=== PATIENT | female | born 1950 | race Caucasian/White ===

== ENCOUNTER 2017-10-05 05:06 | Emergency (ER) | payer OTHER ==
[~2017-10-05] VITALS: Ht 167.6 cm; Wt 139.8 kg
[2017-10-05] MEDS ORDERED: FISH OIL 1,001000 M2 (05:24)
[2017-10-05] MEDS ORDERED: POTASSIUM (05:24)
[2017-10-05] MEDS ORDERED: ZOLOFT (05:26)
[2017-10-05] MEDS ORDERED: HYDROCODONE-AP1 EAC6 (05:28)
[2017-10-05] MEDS ORDERED: NEURONTIN 300300 M1 PO (05:28)
[2017-10-05] MEDS ORDERED: MULTI VITAMIN1 EACH (05:29)
[2017-10-05] MEDS ORDERED: NOVOLIN (05:38)
[2017-10-05 06:01] LABS: MPV 7.9 fl. (7.2-11.1); RBC 4.67 mil/uL (4.20-5.00)
[2017-10-05 06:04] LABS: ABSOLUTE BASOPHILS 0.1 thou/uL (0.0-0.2); ABSOLUTE EOSINOPHILS 0.2 thou/uL (0.0-0.7); ABSOLUTE LYMPHOCYTES 1.6 thou/uL (0.8-5.3); ABSOLUTE MONOCYTES 0.6 thou/uL (0.0-1.2); BASOPHILS 0.8 %; EOSINOPHILS 1.9 %; HEMATOCRIT 41.5 % (37.0-47.0); HEMOGLOBIN 14.1 gm/dL (12.0-15.0); LYMPHOCYTES 17.2 %; MCH 30.1 pg (26.0-34.0); MCHC 33.9 g/dL (28.0-37.0); MCV 88.8 fL (80.0-100.0); NUCLEATED RBCS 0 /100WBC; PLATELET COUNT* 257 thou/uL (150-400); POLYS 74.1 %; RDW-CV 14.8 % (10.5-14.5); WBC 9.4 thou/uL (4.0-11.0)
[2017-10-05 06:09] LABS: ANION GAP 9 mmol/L (7-16); BUN 25 mg/dL (7-18); CALCIUM 9.3 mg/dL (8.5-10.1); CHLORIDE 107 mmol/L (98-107); CO2 31 mmol/L (21-32); CREATININE 0.9 mg/dL (0.6-1.3); GLUCOSE 56 mg/dL (70-99); POTASSIUM 3.4 mmol/L (3.5-5.1); SODIUM 147 mmol/L (136-145)
[2017-10-05 06:21] LABS: ALBUMIN 3.2 g/dL (3.4-5.0); ALKALINE PHOSPHATASE 78 U/L (46-116); LIPASE 60 U/L (73-393); NT-PRO BRAIN NAT PEPTIDE 1987 pg/mL (<300); SGOT 20 U/L (15-37); SGPT 31 U/L (30-65); TOTAL BILIRUBIN 0.7 mg/dL (<0.1-1.0); TOTAL PROTEIN 6.9 g/dL (6.4-8.2); TROPONIN-I LEVEL <0.06 ng/mL (<0.06)
[2017-10-05 07:50] LABS: URINE BILIRUBIN NEGATIVE (Negative); URINE BLOOD 2+ (Negative); URINE CLARITY CLEAR; URINE COLOR YELLOW; URINE GLUCOSE-RANDOM NEGATIVE (Negative); URINE KETONES NEGATIVE (Negative); URINE LEUKOCYTES-REFLEX NEGATIVE (Negative); URINE NITRITE-REFLEX NEGATIVE (Negative); URINE PROTEIN 2+ (Negative); URINE UROBILINOGEN 0.2 E.U./dl (0.2-1.0)
[2017-10-05 08:08] LABS: CASTS None Seen /LPF (None Seen); CRYSTALS None Seen /LPF (None Seen); SQUAMOUS 4-10 Moderate /LPF (0-3); URINE RBC 3-10 Few /HPF (0-2); URINE WBC-REFLEX 0-5 Rare /HPF (0-5)
[2017-10-05 09:25] VITALS: BP 165/74
--- NOTE | 2017-10-05 11:26 | EKG ---
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 Techniques: DONITA : 1950 Requested By: Daisha Montero Order Number: [id number] MD: Shaheen Huerta Measurements Intervals [place] Rate: 67 P: -38 [place]: 168 QRS: 61 QRSD: 103 T: 33 QT: 445 QTc: 470 Interpretive Statements Sinus rhythm Abnormal R-wave progression, late transition Baseline wander in lead(s) V1 No previous ECG available for comparison Electronically Signed On 10-05-2017 11:26:20 INCIDENT RESPONSE ANALYST by Shaheen Huerta [email or web address] <ELECTRONICALLY SIGNED> By: Shaheen Huerta MD, [facility] 10/05/17 1126 0512 1 Shahene Huerta MD, FACC /EPI
--- NOTE | 2017-10-05 16:22 | EKG ---
[place] [address] ELECTROCARDIOGRAM REPORT Name: ELIOT COX Room: [facility]#: [id number] Admission: 10/05/17 Attend Phys: Discharge: 10/05/17 Date of : 46 Report #: [id number] THIS REPORT FOR: //name// [facility] ED Test Date: 2017-10-05 Test Time: 08:35:42 Pat Name: ELIOT COX Department: Room: Gender: F Final Inspector Paper: Jose Manuel BRIZUELA : 1950 Requested By: Seun Kumari Order Number: [id number] MD: Shaheen Huerta Measurements Intervals [place] Rate: 61 P: -7 [place]: 171 QRS: 51 QRSD: 99 T: 31 QT: 471 QTc: 475 Interpretive Statements Sinus rhythm Baseline wander in lead(s) V1 Compared to ECG 10/05/2017 05:12:41 No significant changes Electronically Signed On 10-05-2017 16:21:42 CERTIFIED RESPIRATORY THERAPIST by Shaheen Huerta [email or web address] <ELECTRONICALLY SIGNED> By: Shaheen Huerta MD, [facility] 10/05/17 1621 4 4 Shaheen Huerta MD, FACC /EPI
== END 2017-10-05 09:32 | disposition home or self-care (01) ==
LOC: M.ERS 05:06
PROVIDERS: Emergency Medicine
DX: R07.89 Other chest pain (principal); J45.909 Unspecified asthma, uncomplicated; I10 Essential (primary) hypertension; E11.9 Type 2 diabetes mellitus without complications; Z79.4 Long term (current) use of insulin; Z88.8 Allergy status to other drugs, medicaments and biological substances

== ENCOUNTER → 2017-12-16 | Outpatient (CLI) | payer OTHER ==
[~2017-12-16] MED LIST: COD LIVER OIL1 EAC5 PO; FISH OIL 1,001000 M2; FLAGYL500 MG PO; HYDROCODONE-AP1 EAC6; MULTI VITAMIN1 EACH; NEURONTIN 300300 M1 PO; NOVOLIN; POTASSIUM; VITAMIN D2000 UNIT PO; ZOFRAN ODT4 MG SUBLING; ZOLOFT
== END ==
LOC: M.RAD 12-05 09:27
DX: Z12.31 Encounter for screening mammogram for malignant neoplasm of breast (principal); M81.0 Age-related osteoporosis without current pathological fracture; M85.89 Other specified disorders of bone density and structure, multiple sites; M48.062 Spinal stenosis, lumbar region with neurogenic claudication; M54.5 Low back pain; G89.29 Other chronic pain; Z78.0 Asymptomatic menopausal state

== ENCOUNTER 2018-05-03 15:25 | Emergency (ER) | payer OTHER ==
[~2018-05-03] VITALS: Ht 167.6 cm; Wt 127.0 kg
[~2018-05-03 15:25] MED LIST changes: -COD LIVER OIL1 EAC5 PO; -FLAGYL500 MG PO; -VITAMIN D2000 UNIT PO; -ZOFRAN ODT4 MG SUBLING
[2018-05-03] MEDS ORDERED: COD LIVER OIL1 EAC5 PO (15:55)
[2018-05-03] MEDS ORDERED: VITAMIN D2000 UNIT PO (15:55)
[2018-05-03 16:47] LABS: ABSOLUTE BASOPHILS 0.1 thou/uL (0.0-0.2); ABSOLUTE EOSINOPHILS 0.1 thou/uL (0.0-0.7); ABSOLUTE LYMPHOCYTES 1.6 thou/uL (0.8-5.3); ABSOLUTE MONOCYTES 0.5 thou/uL (0.0-1.2); ABSOLUTE NEUTROPHILS 6.1 thou/uL (1.6-8.1); BASOPHILS 0.8 %; EOSINOPHILS 1.1 %; MCH 30.2 pg (26.0-34.0); MCHC 34.2 g/dL (28.0-37.0); MCV 88.5 fL (80.0-100.0); MONOCYTES 5.5 %; MPV 7.9 fl. (7.2-11.1); NUCLEATED RBCS 0 /100WBC; PLATELET COUNT* 231 thou/uL (150-400); POLYS 73.6 %; RBC 4.97 mil/uL (4.20-5.00); RDW-CV 15.9 % (10.5-14.5); WBC 8.3 thou/uL (4.0-11.0)
[2018-05-03 16:50] LABS: ANION GAP 6 mmol/L (7-16); BUN 14 mg/dL (7-18); CHLORIDE 110 mmol/L (98-107); CO2 32 mmol/L (21-32); CREATININE 0.9 mg/dL (0.6-1.3); GLUCOSE 124 mg/dL (70-99); POTASSIUM 4.5 mmol/L (3.5-5.1); SODIUM 148 mmol/L (136-145)
[2018-05-03 16:51] LABS: URINE BILIRUBIN NEGATIVE (Negative); URINE BLOOD 2+ (Negative); URINE CLARITY CLEAR; URINE COLOR YELLOW; URINE GLUCOSE-RANDOM NEGATIVE (Negative); URINE KETONES NEGATIVE (Negative); URINE LEUKOCYTES-REFLEX NEGATIVE (Negative); URINE NITRITE-REFLEX NEGATIVE (Negative); URINE PROTEIN 3+ (Negative); URINE SPECIFIC GRAVITY 1.025 (1.005-1.030); URINE UROBILINOGEN 0.2 E.U./dl (0.2-1.0)
[2018-05-03 16:57] LABS: ALBUMIN 2.9 g/dL (3.4-5.0); ALKALINE PHOSPHATASE 79 U/L (46-116); LIPASE 48 U/L (73-393); SGOT 32 U/L (15-37); SGPT 29 U/L (30-65); TOTAL BILIRUBIN 0.7 mg/dL (<0.1-1.0); TOTAL PROTEIN 6.5 g/dL (6.4-8.2); TROPONIN-I LEVEL <0.06 ng/mL (<0.06)
[2018-05-03 17:02] LABS: BACTERIA-REFLEX 1-9 Few /HPF (None Seen); CRYSTALS None Seen /LPF (None Seen); HYALINE CASTS 0-3 Few /LPF (None Seen); SQUAMOUS >10 Many /LPF (0-3); URINE WBC-REFLEX 0-5 Rare /HPF (0-5)
[2018-05-03] MEDS ORDERED: FLAGYL500 MG PO (18:05)
[2018-05-03] MEDS ORDERED: ZOFRAN ODT4 MG SUBLING (18:05)
[2018-05-03 18:15] VITALS: BP 193/82
--- NOTE | 2018-05-04 09:52 | EKG ---
[place] [address] ELECTROCARDIOGRAM REPORT Name: KENNYELIOT Room: [facility]#: [id number] Admission: 05/03/18 Attend Phys: Discharge: 05/03/18 Date of : 46 Report #: [id number] THIS REPORT FOR: //name// [facility] ED Test Date: 2018-05-03 Test Time: 16:48:58 Pat Name: ELIOT COX Department: Room: Gender: F Upper Tier: Jose Manuel BRIZUELA : 1950 Requested By: Seun Kumari Order Number: [id number] MD: Shaheen Huerta Measurements Intervals [place] Rate: 78 P: 36 [place]: 209 QRS: 69 QRSD: 95 T: 39 QT: 432 QTc: 493 Interpretive Statements Sinus rhythm Abnormal R-wave progression, late transition Borderline prolonged QT interval Compared to ECG 10/05/2017 08:35:42 No significant changes Electronically Signed On 05-04-2018 9:52:15 CDT by Shaheen Huerta [email or web address] <ELECTRONICALLY SIGNED> By: Shaheen Huerta MD, [facility] 05/04/18 0952 47 Shaheen Huerta MD, [facility] /EPI
== END 2018-05-03 18:17 | disposition home or self-care (01) ==
LOC: M.ERS 15:25
PROVIDERS: Family Medicine
DX: R19.7 Diarrhea, unspecified (principal); R11.0 Nausea; J45.909 Unspecified asthma, uncomplicated; I10 Essential (primary) hypertension; E11.40 Type 2 diabetes mellitus with diabetic neuropathy, unspecified; H35.30 Unspecified macular degeneration; Z91.041 Radiographic dye allergy status

== ENCOUNTER → 2018-10-09 | Outpatient (CLI) | payer OTHER ==
[~2018-10-09] MED LIST changes: +COD LIVER OIL1 EAC5 PO; +FLAGYL500 MG PO; +VITAMIN D2000 UNIT PO; +ZOFRAN ODT4 MG SUBLING
== END ==
LOC: M.WC 07:13
DX: E11.622 Type 2 diabetes mellitus with other skin ulcer (principal); I87.312 Chronic venous hypertension (idiopathic) with ulcer of left lower extremity; L97.821 Non-pressure chronic ulcer of other part of left lower leg limited to breakdown of skin; E11.40 Type 2 diabetes mellitus with diabetic neuropathy, unspecified; I87.2 Venous insufficiency (chronic) (peripheral); J45.909 Unspecified asthma, uncomplicated; Z79.4 Long term (current) use of insulin

== ENCOUNTER → 2018-10-16 | Outpatient (CLI) | payer OTHER | LOC: M.WC 04:35 | DX: E11.622 Type 2 diabetes mellitus with other skin ulcer (principal); I87.312 Chronic venous hypertension (idiopathic) with ulcer of left lower extremity; L97.828 Non-pressure chronic ulcer of other part of left lower leg with other specified severity; E11.40 Type 2 diabetes mellitus with diabetic neuropathy, unspecified; J45.909 Unspecified asthma, uncomplicated ==

== ENCOUNTER 2020-02-09 18:36 | Inpatient (IN) | payer MEDICARE ==
[~2020-02-09] VITALS: Ht 167.6 cm; Wt 121.1 kg
--- NOTE | ~2020-02-09 | EKG ---
[place] [address] ELECTROCARDIOGRAM REPORT Name: ELIOT COX Room: [address] ADM IN .R.#: [id number] Admission: 02/09/20 Attend Phys: Richard Vaca, Discharge: Date of : 46 Date of Service: 02/12/20 1730 Report #: [id number] THIS REPORT FOR: //name// [facility] ED Test Date: 2020-02-12 Test Time: 17:30:51 Pat Name: ELIOT COX Department: Room: [address] Gender: F Heat Treat Supervisor: [id number] : 1950 Requested By: Pauline Frederick Order Number: [id number] MD: Measurements Intervals [place] Rate: 47 P: -7 [place]: 211 QRS: 98 QRSD: 108 T: 84 QT: 499 QTc: 442 Interpretive Statements Sinus bradycardia Right axis deviation Abnormal R-wave progression, late transition Nonspecific T abnrm, anterolateral leads Compared to ECG 02/12/2020 16:44:12 Right-axis deviation now present Intraventricular conduction delay no longer present Myocardial infarct finding no longer present [email or web address] By: 29 29 Epiphany Epiphany, /EPI
--- NOTE | ~2020-02-09 | EKG ---
[place] [address] ELECTROCARDIOGRAM REPORT Name: ELIOT COX Room: [address] ADM IN .R.#: [id number] Admission: 02/09/20 Attend Phys: Richard Vaca, Discharge: Date of : 46 Date of Service: 02/12/20 1645 Report #: [id number] THIS REPORT FOR: //name// ED Test Date: 2020-02-12 Test Time: 16:45:29 Pat Name: ELIOT COX Department: Room: [address] Gender: F Last Scourer: [id number] : 1950 Requested By: Pauline Frederick Order Number: [id number] MD: Measurements Intervals [place] Rate: 66 P: 248 AR: 247 QRS: 97 QRSD: 195 T: 45 QT: 477 QTc: 500 Interpretive Statements Incomplete analysis due to missing data in precordial lead(s) Sinus or ectopic atrial rhythm Ventricular premature complex Prolonged AR interval Consider left atrial enlargement Nonspecific intraventricular conduction delay Missing lead(s): V4 Compared to ECG 02/12/2020 16:44:12 Ectopic atrial rhythm now present Ventricular premature complex(es) now present First degree AV block now present Sinus bradycardia no longer present Myocardial infarct finding no longer present [email or web address] By: 1645 44 Epiphany MD Santiago /STEPHANIE
[~2020-02-09 18:36] MED LIST changes: -NOVOLIN; +NOVOLIN SUBQ
[2020-02-09 18:39] VITALS: BP 134/44
[2020-02-09 19:06] LABS: HEMATOCRIT 39.6 % (37.0-47.0); HEMOGLOBIN 13.6 gm/dL (12.0-15.0); MCH 32.3 pg (26.0-34.0); MCHC 34.3 g/dL (28.0-37.0); MPV 8.9 fl. (7.2-11.1); NUCLEATED RBCS 0 /100WBC; PLATELET COUNT* 157 thou/uL (150-400); RBC 4.22 mil/uL (4.20-5.00); WBC 7.7 thou/uL (4.0-11.0)
[2020-02-09 19:12] LABS: CALCIUM 9.2 mg/dL (8.5-10.1); CREATININE 1.6 mg/dL (0.6-1.3); POTASSIUM 4.7 mmol/L (3.5-5.1)
[2020-02-09 19:15] LABS: APTT 24.3 Seconds (25.0-31.3); INR 1.2; PROTIME 11.9 Seconds (9.20-11.50)
[2020-02-09 19:23] LABS: ALBUMIN 3.3 g/dL (3.4-5.0); TOTAL BILIRUBIN 3.9 mg/dL (<0.1-1.0); TOTAL PROTEIN 6.9 g/dL (6.4-8.2)
[2020-02-09 19:32] LABS: ABSOLUTE LYMPHOCYTES 0.5 thou/uL (0.8-5.3); ABSOLUTE MONOCYTES 0.2 thou/uL (0.0-1.2); ABSOLUTE NEUTROPHILS 6.9 thou/uL (1.6-8.1); PLATELET ESTIMATE ADEQUATE
[2020-02-09 19:33] LABS: ANISOCYTOSIS 1+
[2020-02-09 19:52] LABS: BACTERIA-REFLEX >30 Many /HPF (None Seen); SQUAMOUS 4-10 Moderate /LPF (0-3); URINE BILIRUBIN 2+ (Negative); URINE BLOOD 1+ (Negative); URINE CLARITY CLOUDY; URINE COLOR DARK YELLOW; URINE GLUCOSE-RANDOM TRACE (Negative); URINE KETONES TRACE (Negative); URINE LEUKOCYTES-REFLEX NEGATIVE (Negative); URINE NITRITE-REFLEX NEGATIVE (Negative); URINE PROTEIN 3+ (Negative); URINE RBC 0-2 Rare /HPF (0-2); URINE SPECIFIC GRAVITY >= 1.030 (1.005-1.030); URINE WBC-REFLEX 0-5 Rare /HPF (0-5)
[2020-02-09 19:53] LABS: AMORPHOUS URATES Many /LPF (None Seen); CASTS None Seen /LPF (None Seen)
[2020-02-09 19:55] LABS: ICTOTEST (BILI CONFIRMATORY) Positive (Negative)
[2020-02-09 23:32] VITALS: BP 125/47
[2020-02-09] MEDS ORDERED: HYDRALAZINE 2525 M1 PO (23:34)
[2020-02-09] MEDS ORDERED: LISINOPRIL2.5 MG PO (23:35)
[2020-02-09] MEDS ORDERED: NEURONTIN 300M300 M2 PO ×2 (23:36)
[2020-02-09 23:38] VITALS: BP 140/54
[2020-02-10 04:00] VITALS: BP 118/42
[2020-02-10 07:41] VITALS: BP 121/53
[2020-02-10 07:50] LABS: CALCIUM 8.3 mg/dL (8.5-10.1); CREATININE 1.7 mg/dL (0.6-1.3); MAGNESIUM 1.8 mg/dL (1.8-2.4); TOTAL BILIRUBIN 2.8 mg/dL (<0.1-1.0); TOTAL PROTEIN 6.4 g/dL (6.4-8.2)
[2020-02-10 11:41] VITALS: BP 132/55
--- NOTE | 2020-02-10 15:35 | EKG ---
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: : 1950 Requested By: Pauline Frederick Order Number: [id number] MD: Tim Sahu Measurements Intervals [place] Rate: 70 P: AR: QRS: 139 QRSD: 165 T: 37 QT: 511 QTc: 552 Interpretive Statements NSR Nonspecific intraventricular conduction delay Compared to ECG 05/03/2018 16:48:58 Intraventricular conduction delay now present Electronically Signed On 02-10-2020 15:33:33 CDT by Tim Sahu [email or web address] <ELECTRONICALLY SIGNED> By: Becky Sahu MD, [facility] 02/10/20 1533 1841 1841 Becky Sahu MD, [facility] /EPI
[2020-02-10 16:13] VITALS: BP 142/60
[2020-02-10 20:54] VITALS: BP 124/55
[2020-02-11] VITALS: BP 160/49
[2020-02-11 03:53] VITALS: BP 125/53
[2020-02-11 04:41] LABS: HEMATOCRIT 36.8 % (37.0-47.0); HEMOGLOBIN 12.5 gm/dL (12.0-15.0); MCH 32.2 pg (26.0-34.0); MCV 94.8 fL (80.0-100.0); RBC 3.89 mil/uL (4.20-5.00); RDW-CV 15.7 % (10.5-14.5); WBC 7.5 thou/uL (4.0-11.0)
[2020-02-11 05:01] LABS: ALBUMIN 2.9 g/dL (3.4-5.0); ALKALINE PHOSPHATASE 126 U/L (46-116); ANION GAP 7 mmol/L (7-16); BUN 44 mg/dL (7-18); CALCIUM 8.4 mg/dL (8.5-10.1); CHLORIDE 103 mmol/L (98-107); CHOLESTEROL 134 mg/dL (<200); CO2 30 mmol/L (21-32); GLUCOSE 136 mg/dL (70-99); HDL CHOLESTEROL 60 mg/dL (>40); LDL CHOLESTEROL 64 mg/dL (<100); NT-PRO BRAIN NAT PEPTIDE 12254 pg/mL (<300); SGOT 19 U/L (15-37); SGPT 22 U/L (30-65); SODIUM 140 mmol/L (136-145); TC:HDL 2.2 Ratio (Not establshd); TOTAL BILIRUBIN 2.5 mg/dL (<0.1-1.0); TOTAL PROTEIN 6.6 g/dL (6.4-8.2); TRIGLYCERIDE 51 mg/dL (<150); VLDL 10 mg/dL (<40)
[2020-02-11 05:04] LABS: CREATININE 2.9 mg/dL (0.6-1.3)
[2020-02-11 05:55] LABS: SERUM ASSESSMENT CLEAR
[2020-02-11 07:35] VITALS: BP 128/60
[2020-02-11 12:26] VITALS: BP 123/50
[2020-02-11 17:00] VITALS: BP 178/91
--- NOTE | 2020-02-11 17:03 | EKG ---
[place] [address] ELECTROCARDIOGRAM REPORT Name: ELIOT COX Room: [address] ADM IN .R.#: [id number] Admission: 02/09/20 Attend Phys: Richard Vaca, Discharge: Date of : 46 Date of Service: 02/10/20 1529 Report #: [id number] THIS REPORT FOR: //name// [facility] Test Date: 2020-02-10 Test Time: 15:29:01 Pat Name: ELIOT COX Department: Room: [facility] Gender: F Derrick Boat Operator: MARÍA : 1950 Requested By: Becky Sahu Order Number: [id number] MD: Fran Saucedo Measurements Intervals [place] Rate: 57 P: -33 [place]: 203 QRS: 152 QRSD: 166 T: 15 QT: 517 QTc: 504 Interpretive Statements Sinus rhythm Nonspecific intraventricular conduction delay Compared to ECG 02/09/2020 18:41:34 No significant changes Electronically Signed On 02-11-2020 17:01:54 CDT by Fran Saucedo [email or web address] <ELECTRONICALLY SIGNED> By: Fran Saucedo MD, [facility] 02/11/20 1701 1529 1529 Fran Saucedo MD, [facility] /EPI
--- NOTE | 2020-02-11 18:59 | 2DMMODE ---
[place] [address] 2 D/M-MODE ECHOCARDIOGRAM Name: ELIOT COX Room: [address] IN .R.#: [id number] Admission: 02/09/20 Attend Phys: Richard Vaca, Discharge: Date of : 46 Date of Service: 02/11/20 1857 Report #: [id number] THIS REPORT FOR: cc: Sharlene Forde Linda J. DO Liston, Michael J. MD [facility] ~ ADDENDUM APPROVED REPORT Study performed: 02/11/2020 10:26:18 EXAM: Comprehensive 2D, Doppler, and color-flow Echocardiogram Patient Location: In-Patient Room #: 214 Status: routine BSA: 2.26 HR: 51 bpm BP: 128/60 mmHg Rhythm: NSR Other Information Study Quality: Good Indications Dyspnea 2D Dimensions IVSd: 15.32 (7-11mm) LVOT Diam: 20.10 (18-24mm) LVDd: 44.47 mm PWd: 13.36 (7-11mm) Ascending Ao: 35.32 (22-36mm) LVDs: 37.70 (25-40mm) Aortic Root: 36.46 mm Volumes Left Atrial Volume (Systole) LA ESV Index: 43.50 mL/m2 Aortic Valve AoV Peak Eduardo.: 1.71 m/s AO Peak Gr.: 11.71 mmHg LVOT Max P.86 mmHg AO Mean Gr.: 6.04 mmHg LVOT Mean P.19 mmHg LVOT Max V: 1.10 m/s AO V2 VTI: 31.18 cm LVOT Mean V: 0.67 m/s WOLF (VTI): 2.24 cm2 LVOT V1 VTI: 22.01 [place] [address] 2 D/M-MODE ECHOCARDIOGRAM Name: ELIOT COX Room: [address] IN .R.#: [id number] Admission: 02/09/20 Attend Phys: Richard Vaca, Discharge: Date of : 46 Date of Service: 02/11/20 1857 Report #: [id number] Mitral Valve E/A Ratio: 1.99 MV Decel. Time: 225.84 ms MV E Max Eduardo.: 1.21 m/s MV PHT: 65.49 ms MVA (PHT): 3.36 cm2 TDI E/Lateral E': 30.25 E/Medial E': 17.29 Medial E' Eduardo.: 0.07 m/s Lateral E' Eduardo.: 0.04 m/s Pulmonary Valve PV Peak Eduardo.: 0.80 m/s PV Peak Gr.: 2.58 mmHg Tricuspid Valve RAP Estimate: 5.00 mmHg TR Peak Gr.: 23.43 mmHg RVSP: 28.00 mmHg PA Pressure: 28.00 mmHg Left Ventricle The left ventricle is normal size. There is global left ventricular hypokinesis. Moderate concentric left ventricular hypertrophy. Left ventricular systolic function is moderate to severely decreased. LVEF is 30-35%. Transmitral Doppler flow pattern suggests restrictive physiology. Right Ventricle Right ventricle is moderately dilated. The right ventricular systolic function is normal. Atria Left atrium is moderately dilated. Right atrium is moderately dilated. Aortic Valve The aortic valve is normal in structure. No aortic regurgitation is present. There is no aortic valvular stenosis. Mitral Valve The mitral valve is normal in structure. Trace mitral regurgitation. No evidence of mitral valve stenosis. Tricuspid Valve The tricuspid valve is normal in structure. Mild tricuspid regurgitation. The RVSP is 40-[place] [address] 2 D/M-MODE ECHOCARDIOGRAM Name: ELIOT COX Room: [address] IN [facility]#: [id number] Admission: 02/09/20 Attend Phys: Richard Vaca, Discharge: Date of : 46 Date of Service: 02/11/20 1857 Report #: [id number] Pulmonic Valve The pulmonary valve is normal in structure. Trace pulmonic regurgitation. Great Vessels The aortic root is normal in size. IVC is dilated and collapses <50% with inspiration. Pericardium Mild circumferential pericardial effusion. No echo indications of pericardial tamponade. Left pleural effusion. <Conclusion> The left ventricle is normal size. Moderate concentric left ventricular hypertrophy. Left ventricular systolic function is moderate to severely decreased. LVEF is 30-35%. Transmitral Doppler flow pattern suggests restrictive physiology. There is global left ventricular hypokinesis. Left atrium is moderately dilated. Right atrium is moderately dilated. Trace mitral regurgitation. Mild tricuspid regurgitation. The RVSP is 40-45 mmHg. IVC is dilated and collapses <50% with inspiration. Mild circumferential pericardial effusion. No echo indications of pericardial tamponade. Left pleural effusion. <ELECTRONICALLY SIGNED> By: Fran Saucedo MD, FACC 02/11/201856 56 56 Fran Saucedo MD, FACC /INF
[2020-02-11 21:15] VITALS: BP 119/74
[2020-02-12] VITALS: BP 129/56
[2020-02-12 04:00] VITALS: BP 131/59
[2020-02-12 05:36] LABS: CALCIUM 8.6 mg/dL (8.5-10.1); CREATININE 3.8 mg/dL (0.6-1.3); POTASSIUM 4.5 mmol/L (3.5-5.1)
[2020-02-12 08:15] VITALS: BP 140/55
[2020-02-12 13:03] VITALS: BP 104/41
[2020-02-12 20:00] VITALS: BP 140/56
[2020-02-12] MEDS ORDERED: PROAIR HFA8.5 GM INH (22:50)
[2020-02-13] VITALS (9 sets, daily range): BP systolic 116–156; BP diastolic 50–77
[2020-02-13 05:35] LABS: ALBUMIN 2.6 g/dL (3.4-5.0); CALCIUM 8.4 mg/dL (8.5-10.1); CREATININE 4.2 mg/dL (0.6-1.3); POTASSIUM 4.5 mmol/L (3.5-5.1); TOTAL BILIRUBIN 1.9 mg/dL (<0.1-1.0); TOTAL PROTEIN 6.4 g/dL (6.4-8.2)
[2020-02-13 12:08] LABS: ANA INTERPRETATION Negative (Negative)
--- NOTE | 2020-02-13 16:24 | EKG ---
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: [id number] : 1950 Requested By: Richard Vaca Order Number: [id number] Kaiser MD: Shaheen Huerta Measurements Intervals [place] Rate: 51 P: SC: QRS: 106 QRSD: 115 T: -39 QT: 618 QTc: 570 Interpretive Statements Incomplete analysis due to missing data in precordial lead(s) sinus bradycardia Nonspecific intraventricular conduction delay Low voltage, extremity leads Lateral infarct, old late transition artifact noted Baseline wander in lead(s) V2 Missing lead(s): V4 Compared to ECG 02/10/2020 15:29:01 anterior q waves no longer seen Electronically Signed On 02-13-2020 16:22:54 CDT by Shaheen Huerta [email or web address] <ELECTRONICALLY SIGNED> By: Shaheen Huerta MD, [facility] 02/13/20 1622 43 1644 Sahheen Huerta MD, [facility] /EPI
[2020-02-13 18:30] LABS: CALCIUM 8.6 mg/dL (8.5-10.1); CREATININE 4.2 mg/dL (0.6-1.3); MAGNESIUM 2.2 mg/dL (1.8-2.4); POTASSIUM 4.8 mmol/L (3.5-5.1)
[2020-02-14] VITALS (24 sets, daily range): BP systolic 99–137; BP diastolic 43–74
[2020-02-14 02:56] LABS: ALBUMIN 2.6 g/dL (3.4-5.0); CALCIUM 8.2 mg/dL (8.5-10.1); CREATININE 3.9 mg/dL (0.6-1.3); POTASSIUM 4.9 mmol/L (3.5-5.1); TOTAL BILIRUBIN 2.1 mg/dL (<0.1-1.0); TOTAL PROTEIN 6.4 g/dL (6.4-8.2)
[2020-02-14 08:55] LABS: ABSOLUTE EOSINOPHILS 0.1 thou/uL (0.0-0.7); ABSOLUTE LYMPHOCYTES 0.7 thou/uL (0.8-5.3); ABSOLUTE MONOCYTES 0.6 thou/uL (0.0-1.2); ABSOLUTE NEUTROPHILS 3.4 thou/uL (1.6-8.1); BASOPHILS 0.8 %; EOSINOPHILS 1.3 %; HEMATOCRIT 34.6 % (37.0-47.0); HEMOGLOBIN 11.9 gm/dL (12.0-15.0); LYMPHOCYTES 14.4 %; MCH 32.4 pg (26.0-34.0); MCHC 34.3 g/dL (28.0-37.0); MCV 94.3 fL (80.0-100.0); MONOCYTES 11.9 %; NUCLEATED RBCS 0 /100WBC; PLATELET COUNT* 159 thou/uL (150-400); POLYS 71.6 %; RBC 3.67 mil/uL (4.20-5.00); RDW-CV 15.6 % (10.5-14.5); WBC 4.8 thou/uL (4.0-11.0)
--- NOTE | 2020-02-14 14:10 | CON ---
[address] [address] CONSULTATION Name: ELIOT COX Room: [address] IN .R.#: [id number] Admission: 02/09/20 Attend Phys: Richard Vaca MD Discharge: Date of : 46 Report #: [id number] THIS REPORT FOR: //name// cc: Sharlene Forde Linda J. DO ~ THIS REPORT FOR: //name// CC: Richard Forde DO DATE OF SERVICE: 02/11/2020 REQUESTING PHYSICIAN: Richard Vaca MD HISTORY OF PRESENT ILLNESS: This is a 69-year-old female with multiple medical problems including right and left heart failure, chronic kidney disease, who presents to hospital with nausea, abdominal pain and shortness of air. The patient found to have mild elevation of the troponin and worsening of renal function. She reports that 6 weeks ago, she had a CT scan in another facility and she was told that she has liver disease. Prior to that, she has never been told that she has liver disease. PAST MEDICAL HISTORY: Significant for history of heart failure, asthma, hypertension, diabetes mellitus, macular degeneration, peptic ulcer disease, diabetic neuropathy, morbid obesity, chronic kidney disease, depression. ALLERGIES: SIGNIFICANT TO IV CONTRAST. MEDICATIONS: Please refer to MAR. SOCIAL HISTORY: The patient denies tobacco or alcohol use. She lives at home. FAMILY HISTORY: Negative for GI malignancy. PHYSICAL EXAMINATION: VITAL SIGNS: Reveals blood pressure of 123/50, respirations 20, pulse is 97, temperature 98.4. LUNGS: Clear. CARDIOVASCULAR: Regular. ABDOMEN: Soft, large, mildly tender to palpation. NEUROLOGIC: The patient is alert and oriented x 3. LABORATORY DATA: Reveal sodium of 140, potassium 4.0, BUN is 44, creatinine 2.9, glucose 136, AST is 19, ALT 22, alkaline phosphatase 126, total bilirubin is 2.5, it was 0.7 in 2018. Albumin is 2.9. INR is 1.2. WBC 7[place]5 [place] [address] CONSULTATION Name: ELIOT COX Room: [address] IN [facility]#: [id number] Admission: 02/09/20 Attend Phys: Richard Vaca MD Discharge: Date of : 46 Report #: [id number] hemoglobin of 12.5 and platelet of 138. IMAGING: CT of abdomen and pelvis was obtained on admission. This did not show any evidence of splenomegaly or cirrhosis. There is marked cardiomegaly with small bilateral pleural effusion, mild ascites and anasarca. ASSESSMENT AND PLAN: The patient with history of heart failure, elevated creatinine as the patient has acute over chronic renal insufficiency. So far, I do not see any evidence of liver disease except elevated bilirubin. This may not be due to the liver. I will order a GGT and continue checking bilirubin. The patient is agreeable with plan. We will make further recommendation based on finding. <ELECTRONICALLY SIGNED> By: Mima Tucker MD 02/14/20 1410 1435 1459Mima Tucker MD /nt
[2020-02-15] VITALS (20 sets, daily range): BP systolic 91–159; BP diastolic 47–74
[2020-02-15 02:08] LABS: IgA 267 mg/dL (64-422); IgG 833 mg/dL (586-1602); IgM 124 mg/dL (26-217)
[2020-02-15 03:26] LABS: ABSOLUTE BASOPHILS 0.1 thou/uL (0.0-0.2); ABSOLUTE LYMPHOCYTES 0.6 thou/uL (0.8-5.3); ABSOLUTE MONOCYTES 0.6 thou/uL (0.0-1.2); ABSOLUTE NEUTROPHILS 3.5 thou/uL (1.6-8.1); BASOPHILS 1.3 %; HEMATOCRIT 34.4 % (37.0-47.0); LYMPHOCYTES 12.8 %; MCV 94.2 fL (80.0-100.0); MONOCYTES 12.7 %; MPV 8.4 fl. (7.2-11.1); NUCLEATED RBCS 0 /100WBC; PLATELET COUNT* 151 thou/uL (150-400); POLYS 72.2 %; RBC 3.66 mil/uL (4.20-5.00); RDW-CV 15.7 % (10.5-14.5); WBC 4.9 thou/uL (4.0-11.0)
[2020-02-15 03:47] LABS: ALBUMIN 2.5 g/dL (3.4-5.0); CALCIUM 8.5 mg/dL (8.5-10.1); CREATININE 3.8 mg/dL (0.6-1.3); POTASSIUM 5.3 mmol/L (3.5-5.1); TOTAL BILIRUBIN 2.3 mg/dL (<0.1-1.0); TOTAL PROTEIN 6.3 g/dL (6.4-8.2)
--- NOTE | 2020-02-15 12:51 | EKG ---
[place] [address] ELECTROCARDIOGRAM REPORT Name: ELIOT COX Ayo Room: [address] ADM IN M.R.#: [id number] Admission: 02/09/20 Attend Phys: Richard Vaca, Discharge: Date of : 46 Date of Service: 02/12/20 1729 Report #: [id number] THIS REPORT FOR: //name// [facility] ED Test Date: 2020-02-12 Test Time: 17:29:25 Pat Name: ELIOT COX Department: Room: [address] Gender: F Biomedical Equipment Tech: [id number] : 1950 Requested By: Richard Vaca Order Number: [id number] Reading MD: Shaheen Huerta Measurements Intervals [place] Rate: 47 P: 235 [place]: 220 QRS: 101 QRSD: 110 T: 87 QT: 496 QTc: 439 Interpretive Statements Sinus or ectopic atrial bradycardia Right axis deviation Abnormal R-wave progression, late transition Nonspecific T abnrm, anterolateral leads Compared to ECG 02/12/2020 16:44:12 no change Electronically Signed On 02-15-2020 12:49:07 CDT by Shaheen Huerta [email or web address] <ELECTRONICALLY SIGNED> By: Shaheen Huerta MD, FAC 02/15/20 1249 1729 1729 Shaheen Huerta MD, FAC /EPI
--- NOTE | 2020-02-15 12:51 | EKG ---
[place] [address] ELECTROCARDIOGRAM REPORT Name: KENNYELIOT R Room: [address] ADM IN M.R.#: [id number] Admission: 02/09/20 Attend Phys: Richard Vaca, Discharge: Date of : 46 Date of Service: 02/12/201729 Report #: [id number] THIS REPORT FOR: //name// [facility] ED Test Date: 2020-02-12 Test Time: 17:30:51 Pat Name: ELIOT COX Department: Room: [address] Gender: F Train Driver: [id number] : 1950 Requested By: Richard Vaca Order Number: [id number] Reading MD: Shaheen Huerta Measurements Intervals [place] Rate: 47 P: -7 [place]: 211 QRS: 98 QRSD: 108 T: 84 QT: 499 QTc: 442 Interpretive Statements Sinus bradycardia Right axis deviation Abnormal R-wave progression, late transition Nonspecific T abnrm, anterolateral leads Compared to ECG 02/12/2020 16:44:12 no change Electronically Signed On 02-15-2020 12:50:01 CDT by Shaheen Huerta [email or web address] <ELECTRONICALLY SIGNED> By: Shaheen Huerat MD, [facility] 02/15/20 1250 1730 1730 Shaheen Huerta MD, FAC /EPI
--- NOTE | 2020-02-15 12:52 | EKG ---
[place] [address] ELECTROCARDIOGRAM REPORT Name: KENNYELIOT Room: [address] ADM IN M.R.#: [id number] Admission: 02/09/20 Attend Phys: Richard Vaca, Discharge: Date of : 46 Date of Service: 02/13/20 1751 Report #: [id number] THIS REPORT FOR: //name// [facility] ED Test Date: 2020-02-13 Test Time: 17:51:21 Pat Name: ELIOT COX Department: Room: [address] Gender: F Musculoskeletal Physiotherapist: THERESE : 1950 Requested By: Richard Vaca Order Number: [id number] Kaiser MD: Shaheen Huerta Measurements Intervals [place] Rate: 50 P: 31 [place]: 222 QRS: 115 QRSD: 114 T: 100 QT: 487 QTc: 445 Interpretive Statements Sinus bradycardia Prolonged [place] interval Anteroseptal infarct, age indeterminate Baseline wander in lead(s) II,III,aVF Compared to ECG 02/12/2020 16:44:12 no change Electronically Signed On 02-15-2020 12:51:01 CDT by Shaheen Huerta [email or web address] <ELECTRONICALLY SIGNED> By: Shaheen Huerta MD, FACC 02/15/20 1251 175 175 Shaheen Huerta MD, FAC /EPI
[2020-02-16] VITALS (10 sets, daily range): BP systolic 126–159; BP diastolic 46–79
[2020-02-16 04:58] LABS: HEMOGLOBIN 12.4 gm/dL (12.0-15.0); MCH 32.5 pg (26.0-34.0); MCHC 34.4 g/dL (28.0-37.0); MCV 94.5 fL (80.0-100.0); MPV 8.9 fl. (7.2-11.1); RBC 3.81 mil/uL (4.20-5.00); RDW-CV 15.2 % (10.5-14.5); WBC 5.1 thou/uL (4.0-11.0)
[2020-02-16 05:20] LABS: ALBUMIN 2.8 g/dL (3.4-5.0); CALCIUM 8.7 mg/dL (8.5-10.1); CREATININE 3.2 mg/dL (0.6-1.3); MAGNESIUM 2.4 mg/dL (1.8-2.4); POTASSIUM 5.1 mmol/L (3.5-5.1); TOTAL BILIRUBIN 3.2 mg/dL (<0.1-1.0); TOTAL PROTEIN 6.8 g/dL (6.4-8.2)
[2020-02-17] VITALS: BP 127/71
[2020-02-17 04:00] VITALS: BP 127/64
[2020-02-17 05:07] LABS: ALBUMIN 2.7 g/dL (3.4-5.0); CALCIUM 8.8 mg/dL (8.5-10.1); CREATININE 3.1 mg/dL (0.6-1.3); MAGNESIUM 2.5 mg/dL (1.8-2.4); PHOSPHORUS* 4.5 mg/dL (2.5-4.9); POTASSIUM 5.1 mmol/L (3.5-5.1)
[2020-02-17 07:52] VITALS: BP 114/77
[2020-02-17 11:25] VITALS: BP 123/62
[2020-02-17 16:35] VITALS: BP 122/67
[2020-02-17 19:39] VITALS: BP 137/73
[2020-02-18] VITALS: BP 120/69
[2020-02-18 04:00] VITALS: BP 122/78
[2020-02-18 07:34] VITALS: BP 106/54
[2020-02-18 07:39] LABS: ALBUMIN 2.6 g/dL (3.4-5.0); CREATININE 3.1 mg/dL (0.6-1.3); MAGNESIUM 2.6 mg/dL (1.8-2.4); PHOSPHORUS* 4.9 mg/dL (2.5-4.9); POTASSIUM 4.5 mmol/L (3.5-5.1)
[2020-02-18 12:03] VITALS: BP 116/69
--- NOTE | 2020-02-18 12:29 | CON ---
[address] [address] CONSULTATION Name: ELIOT COX Room: [address] IN M.R.#: [id number] Admission: 02/09/20 Attend Phys: Richard Vaca MD Discharge: Date of : 46 Report #: [id number] THIS REPORT FOR: //name// cc: Sharlene Forde Linda J. DO ~ THIS REPORT FOR: //name// CC: Richard Forde CARDIOLOGY CONSULTATION HISTORY OF PRESENT ILLNESS: I was asked by Dr. Vaca to see this 69-year-old white female in cardiology consultation for evaluation and treatment of chest pain and pericardial effusion. Additionally, this lady has ascites and pleural effusions. This lady's chest pain was in the left upper chest. She has a long cardiac history actually. Apparently, she has had heart failure for at least 5 years. She has been getting diuretics. 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 She does not really know much about what is wrong with her heart. She had chest pain in the left upper chest that she describes as a 12 on a scale of 10. She describes the pain as a pressure, it lasted 3 hours. It came and went down in the ER for about 2 hours. She said it would be relieved with nitroglycerin and morphine. It was definitely worse with activity. It was not clearly better with rest. It was the first time she has ever had this pain. She does have coronary calcifications on a coronary CT. She does have diabetes mellitus and essential hypertension and a history of asthma. Additionally, on her CT of her chest, she had marked cardiomegaly. From most recent records, there was some nausea with this and she had some vomiting. She also had diarrhea or loose stools yesterday. There was no relationship to food. It did seem to be better with nitroglycerin. The pain did radiate to her neck and back. She did not have troponin elevations with this. Her EKG showed normal sinus rhythm with left bundle branch block. She had never been told she had a left bundle until she came here. She apparently wears oxygen 2 liters at bedtime in order to sleep comfortably. She thought it was for her asthma. She does not know whether or not she has dyspnea on exertion and she says she does not exert. She does not have orthopnea or PND. She does have edema. Currently, she has only 1+ edema. She has not had syncope or near syncope. Coronary risk factors include diabetes and high blood pressure. She does not know about her cholesterol. She has never smoked, but she says she has always been around secondhand smoke. There is family history of coronary artery disease. She says she does have some kidney disease. She has not had any strokes or TIAs or blocked arteries or bruits as far as she knows. She does not have claudication, but she says she does not walk much. She does not have any open nonhealing wounds. She also has cirrhosis. She says that was recently diagnosed. She says that she has had trouble with left and right heart fluid accumulation and fluid overload. She has had back surgery in the past. [address] [address] CONSULTATION Name: ELIOT COX Room: M.205-P ADM IN M.R.#: [id number] Admission: 02/09/20 Attend Phys: Richard Vaca MD Discharge: Date of : 46 Report #: [id number] FAMILY HISTORY: Her mother had hypertension, diabetes. Father had lung cancer, of those. There has been no history of sudden . SOCIAL HISTORY: She is x 2. She is retired, does not smoke, does not drink or use illegal drugs. 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 ALLERGIES: SHE IS ALLERGIC TO IV CONTRAST, WHICH CAUSES HIVES. REVIEW OF SYSTEMS: Positive for 10-pound weight loss in the last month, diabetes, vomiting and ulcers as well as SEASONAL ALLERGIES, X-RAY DYE ALLERGY, wearing glasses and loss of vision. Otherwise, her review of systems is negative for some 40 different complaints in 14 different system categories including central nervous system, general, respiratory, cardiovascular, endocrine, gastrointestinal, genitourinary, hematologic, lymphatic, allergic, immunologic, psychiatric, musculoskeletal, skin, eyes, ears, nose, mouth, and throat. Please see review of system form for details and negatives in review of systems. PHYSICAL EXAMINATION: GENERAL: She presents as an elderly obese white female, in no acute distress. She is lying flat in bed and breathing comfortably. VITAL SIGNS: Her pulse was 57 and regular, blood pressure is 118/42, respirations 20 and regular, temperature is 98 degrees. HEENT: Her head was atraumatic. Eyes clear. Mucous membranes are moist. NECK: Supple. There is no jugular venous distention or hepatojugular reflux. Thyroid is not enlarged. There is no adenopathy. SKIN: Warm and dry. LUNGS: Clear to auscultation and percussion. HEART: Revealed normal first and second heart sounds. There is soft S4. There is no S3. There are no murmurs, rubs, thrills, heaves or gallops. PMI is nondisplaced. ABDOMEN: Soft, flat and nontender. No palpable masses, no organomegaly. EXTREMITIES: Reveal no cyanosis, clubbing, but there is 1+ ankle edema. IMPRESSION: 1. Chest pain that could well be cardiac. 2. Pericardial effusion by CT of the chest. 3. Ascites by CT of the chest. 4. Asthma. 5. Insulin-dependent diabetes mellitus. 6. Cardiomegaly by CT of the chest. 7. Pleural effusions by CT of the chest. 8. Essential hypertension. 9. Coronary calcifications on CT of the chest. 10. Congestive heart failure, presumably acute on chronic [place] [address] CONSULTATION Name: ELIOT COX Room: [address] IN [facility]#: [id number] Admission: 02/09/20 Attend Phys: Richard Vaca MD Discharge: Date of : 46 Report #: [id number] failure with both systolic and diastolic heart failure. RECOMMENDATIONS: I would diurese her for now, get an echo and when she is diuresed down, I would cath her. Please see my orders. Thank you very much for asking me to see the patient. If there are any questions, please feel free to contact me. Note that this lady did refuse a Lexiscan Cardiolite stress test or any kind of stress test. <ELECTRONICALLY SIGNED> By: Becky Sahu MD, MEY 02/18/20 [facility]9 1229 [id number]. Tim Sahu MD, MEY /nt
[2020-02-18 15:52] VITALS: BP 124/70
[2020-02-18 19:40] VITALS: BP 132/62
[2020-02-19 00:26] VITALS: BP 124/58
[2020-02-19 04:32] VITALS: BP 139/91
[2020-02-19 04:42] LABS: HEMATOCRIT 35.8 % (37.0-47.0); HEMOGLOBIN 12.2 gm/dL (12.0-15.0); MCH 32.2 pg (26.0-34.0); MCV 94.8 fL (80.0-100.0); MPV 8.1 fl. (7.2-11.1); RBC 3.78 mil/uL (4.20-5.00); RDW-CV 15.6 % (10.5-14.5); WBC 6.8 thou/uL (4.0-11.0)
[2020-02-19 05:05] LABS: ALBUMIN 2.7 g/dL (3.4-5.0); CALCIUM 8.8 mg/dL (8.5-10.1); CREATININE 3.3 mg/dL (0.6-1.3); MAGNESIUM 2.5 mg/dL (1.8-2.4); PHOSPHORUS* 5.3 mg/dL (2.5-4.9); POTASSIUM 4.8 mmol/L (3.5-5.1)
[2020-02-19 07:39] VITALS: BP 128/60
--- NOTE | 2020-02-19 10:28 | CON ---
[address] [address] CONSULTATION Name: ELIOT COX Room: [address] IN .R.#: [id number] Admission: 02/09/20 Attend Phys: Richard Vaca MD Discharge: Date of : 46 Report #: [id number] THIS REPORT FOR: //name// cc: Sharlene Forde Linda J. DO ~ THIS REPORT FOR: //name// CC: Richard Forde DATE OF SERVICE: 02/12/2020 REQUESTING PHYSICIAN: Richard Vaca MD. REASON FOR CONSULTATION: Acute kidney injury. HISTORY OF PRESENT ILLNESS: The patient is a 69-year-old female admitted with chief complaints of chest pain. Her medical history is significant for a history of coronary artery disease with severe ischemic cardiomyopathy, left ventricular ejection fraction around 30-35%. She also has liver cirrhosis, history of diabetes mellitus type 2 and hypertension and when she was evaluated in the Emergency Room, she was found to have small amount of pericardial effusion, some pleural effusion and a moderate amount of ascites. She presents with chest pain and found to be in some volume overload, was given Lasix. Her creatinine improved and I was consulted. PAST MEDICAL HISTORY: As I mentioned earlier. SOCIAL HISTORY: No tobacco, no alcohol abuse. FAMILY HISTORY: Noncontributory. REVIEW OF SYSTEMS: Positive for being very weak. She is very sleepy, does not really want to talk to me and not really engaging in conversation. PHYSICAL EXAMINATION: GENERAL: She is awake. VITAL SIGNS: Blood pressure 140/55, heart rate is 47, respiratory rate 18, afebrile. HEENT: Pupils are round. NECK: Supple. LUNGS: Decreased air movements. CARDIOVASCULAR: Very distant heart tones. ABDOMEN: Soft, obese. LOWER EXTREMITIES: [place] [address] CONSULTATION Name: ELIOT COX Room: [address] IN [facility]#: [id number] Admission: 02/09/20 Attend Phys: Richard Vaca MD Discharge: Date of : 46 Report #: [id number] LABORATORY DATA: Report revealed serum sodium 138, potassium 4.5, chloride 101, carbon dioxide 29, BUN 53, and creatinine 3.8. Creatinine was 1.6 on admission. ASSESSMENT: 1. Acute kidney injury, probably combination of under perfusion of kidneys with severe cardiomyopathy and also maybe use of diuretics initially. 2. Liver cirrhosis. 3. Severe cardiomyopathy with left ventricular ejection fraction of 30-35%. 4. History of diabetes mellitus type 2. 5. Hypertension. The patient has not established her care with a permastone installer yet. We do not know the reason for liver cirrhosis. PLAN: Try to keep her euvolemic. Agree with holding her diuretics for now. She does not look markedly overloaded to me and my exam. We will obtain renal ultrasound. We will check urine for sodium and creatinine. I will check her chemistries. The patient also could have hepatorenal syndrome. <ELECTRONICALLY SIGNED> By: Randal Lainez MD 02/19/20 1028 1211 [id number] Lainez MD /nt
[2020-02-19 12:01] VITALS: BP 124/58
[2020-02-19 12:08] LABS: KAPPA FREE LIGHT CHAINS 63.5 mg/L (3.3-19.4); LAMBDA FREE LIGHT CHAINS 35.1 mg/L (5.7-26.3)
[2020-02-19 15:40] VITALS: BP 117/56
[2020-02-19 20:00] VITALS: BP 123/64
[2020-02-20 04:36] VITALS: BP 141/67
[2020-02-20 05:37] LABS: ALBUMIN 2.6 g/dL (3.4-5.0); CALCIUM 8.5 mg/dL (8.5-10.1); CREATININE 3.3 mg/dL (0.6-1.3); POTASSIUM 4.6 mmol/L (3.5-5.1); TOTAL BILIRUBIN 2.8 mg/dL (<0.1-1.0); TOTAL PROTEIN 6.8 g/dL (6.4-8.2)
[2020-02-20 08:00] VITALS: BP 132/68
[2020-02-20 11:58] VITALS: BP 136/64
[2020-02-20 15:27] LABS: BF RBC 2665 /mm3; CLARITY CLOUDY; SOURCE THORACENTESIS; TOTAL CELL COUNT 957 /mm3; TOTAL VOLUME 900 ml
[2020-02-20 15:33] LABS: BF LYMPHOCYTES 22 %; BF MONOCYTES 19 %; BF POLYS 59 %
[2020-02-20 15:58] VITALS: BP 131/68
[2020-02-20 20:00] VITALS: BP 157/73
[2020-02-21] VITALS: BP 109/44
[2020-02-21 04:00] VITALS: BP 124/50
[2020-02-21 05:41] LABS: CALCIUM 8.6 mg/dL (8.5-10.1); POTASSIUM 4.5 mmol/L (3.5-5.1)
[2020-02-21 08:00] VITALS: BP 106/61
[2020-02-21 12:40] VITALS: BP 124/66
[2020-02-21 17:02] VITALS: BP 122/70
[2020-02-21 20:00] VITALS: BP 122/66
[2020-02-22] VITALS (8 sets, daily range): BP systolic 107–139; BP diastolic 60–75
[2020-02-22 04:53] LABS: HEMATOCRIT 32.6 % (37.0-47.0); HEMOGLOBIN 11.1 gm/dL (12.0-15.0); MCH 32.2 pg (26.0-34.0); MCHC 34.1 g/dL (28.0-37.0); MCV 94.2 fL (80.0-100.0); MPV 8.2 fl. (7.2-11.1); RBC 3.47 mil/uL (4.20-5.00); RDW-CV 15.3 % (10.5-14.5); WBC 7.3 thou/uL (4.0-11.0)
[2020-02-22 04:55] LABS: ALBUMIN 2.5 g/dL (3.4-5.0); CALCIUM 8.5 mg/dL (8.5-10.1); CREATININE 2.7 mg/dL (0.6-1.3); MAGNESIUM 2.4 mg/dL (1.8-2.4); PHOSPHORUS* 4.9 mg/dL (2.5-4.9); POTASSIUM 4.3 mmol/L (3.5-5.1)
[2020-02-22 16:29] LABS: SOURCE THORACENTESIS
[2020-02-23 04:31] VITALS: BP 124/76
[2020-02-23 05:05] LABS: HEMOGLOBIN 11.3 gm/dL (12.0-15.0); MCH 32.1 pg (26.0-34.0); MCHC 34.2 g/dL (28.0-37.0); MCV 93.6 fL (80.0-100.0); RBC 3.53 mil/uL (4.20-5.00); WBC 8.2 thou/uL (4.0-11.0)
[2020-02-23 05:23] LABS: ALBUMIN 2.5 g/dL (3.4-5.0); CALCIUM 8.3 mg/dL (8.5-10.1); CREATININE 2.6 mg/dL (0.6-1.3); MAGNESIUM 2.4 mg/dL (1.8-2.4); PHOSPHORUS* 4.8 mg/dL (2.5-4.9); POTASSIUM 4.2 mmol/L (3.5-5.1)
[2020-02-23 08:00] VITALS: BP 129/71
[2020-02-23 09:09] LABS: BODY FLUID LDH 243 IU/L (()); BODY FLUID PROTEIN 2.1 g/dL (())
[2020-02-23 12:13] VITALS: BP 133/67
[2020-02-23 16:12] VITALS: BP 124/67
[2020-02-23 20:00] VITALS: BP 129/60; BP 131/59
[2020-02-23 23:59] VITALS: BP 137/59
[2020-02-24 04:15] VITALS: BP 121/61
[2020-02-24 04:29] LABS: ALBUMIN 2.5 g/dL (3.4-5.0); CALCIUM 8.4 mg/dL (8.5-10.1); CREATININE 2.3 mg/dL (0.6-1.3); MAGNESIUM 2.2 mg/dL (1.8-2.4); PHOSPHORUS* 4.7 mg/dL (2.5-4.9)
[2020-02-24 08:00] VITALS: BP 130/62
[2020-02-24 11:52] VITALS: BP 143/76
[2020-02-24 17:33] VITALS: BP 129/75
[2020-02-24 20:00] VITALS: BP 140/65
[2020-02-24 23:48] VITALS: BP 150/81
[2020-02-25] VITALS (7 sets, daily range): BP systolic 102–143; BP diastolic 42–82
[2020-02-25 05:12] LABS: ALBUMIN 2.5 g/dL (3.4-5.0); CALCIUM 8.6 mg/dL (8.5-10.1); PHOSPHORUS* 4.6 mg/dL (2.5-4.9); POTASSIUM 3.6 mmol/L (3.5-5.1)
--- NOTE | 2020-02-25 11:08 | PATH ---
[address] [address] PATHOLOGY RPT PROCEDURE Name: ELIOT COX Room: [address] IN [facility]#: [id number] Admission: 02/09/20 Date of : 46 Discharge: Report #: [id number] Path Case #: [id number] Note [facility] Accession Number: [id number] TESTS RESULT FLAG UNITS REF RANGE LAB Clinician Provided Cytology Information No. of containers..01 Other (Miscellaneous) Source: PLEURAL FLUID DIAGNOSIS: 02 LEFT PLEURAL FLUID NO MALIGNANT CELLS IDENTIFIED. REACTIVE MESOTHELIAL CELLS AND MODEST ACUTE AND CHRONIC INFLAMMATION. THIS INTERPRETATION INCLUDES EVALUATION OF A CELL BLOCK. Signed out by: 02 Lee Alcaraz MD, Pathologist NPI- [id number] Performed by: 01 Sharlene Potts, Anthropology Lecturer ([facility]) Gross description: 01 40ML, CLEAR YELLOW, 1TP 1CB /LCS 02/21/2020 0546 Local FLAG LEGEND: L-Low Normal,H-High Normal,LL-Alert Low,HH-Alert High <-Panic Low,>-Panic High,A-Abnormal,AA-Critical Abnormal Performed at: [address] [place] [address] Iker Piper MD, [address] [place] [address], [place] [address] Lee Alcaraz MD, Performed at: [address] [place] [address] [address], [place], [place] [id number] MD Iker Piper MD Phone: [phone]
[2020-02-26 04:37] VITALS: BP 156/72
[2020-02-26 08:00] VITALS: BP 135/77
[2020-02-26 08:16] LABS: CALCIUM 8.3 mg/dL (8.5-10.1); CREATININE 1.9 mg/dL (0.6-1.3); POTASSIUM 3.7 mmol/L (3.5-5.1)
[2020-02-26 11:30] VITALS: BP 151/82
[2020-02-26 16:00] VITALS: BP 116/75
[2020-02-26 20:00] VITALS: BP 151/80
[2020-02-27] VITALS: BP 144/82
[2020-02-27 04:00] VITALS: BP 120/54
[2020-02-27 05:23] LABS: CALCIUM 8.6 mg/dL (8.5-10.1); CREATININE 1.8 mg/dL (0.6-1.3); POTASSIUM 3.6 mmol/L (3.5-5.1)
[2020-02-27 08:00] VITALS: BP 137/91
[2020-02-27 12:00] VITALS: BP 134/67
--- NOTE | 2020-02-27 14:52 | EKG ---
[place] [address] ELECTROCARDIOGRAM REPORT Name: ELIOT COX Room: [address] ADM IN .R.#: [id number] Admission: 02/09/20 Attend Phys: Richard Vaca, Discharge: Date of : 46 Date of Service: 02/27/20 0425 Report #: [id number] THIS REPORT FOR: //name// [facility] Test Date: 2020-02-27 Test Time: 04:25:20 Pat Name: ELIOT COX Department: Room: [address] Gender: F Garment Sorter: : 1950 Requested By: Fran Saucedo Order Number: [id number] Reading MD: Shaheen Huerta Measurements Intervals [place] Rate: 88 P: 64 VT: 185 QRS: 68 QRSD: 101 T: 87 QT: 403 QTc: 488 Interpretive Statements atrial tachycardia Low voltage with right axis deviation Nonspecific T abnormalities, lateral leads poor r wave progression Compared to ECG 02/13/2020 17:51:21 Right-axis deviation no longer present Sinus bradycardia no longer present Electronically Signed On 02-27-2020 14:50:03 CDT by Shaheen Huerta [email or web address] <ELECTRONICALLY SIGNED> By: Shaheen Huerta MD, [facility] 02/27/20 1450 0425 0425 Shaheen Huerta MD, [facility] /EPI
[2020-02-27 19:30] VITALS: BP 124/63
[2020-02-28 05:00] VITALS: BP 146/83
[2020-02-28 07:15] VITALS: BP 114/69
[2020-02-28 08:56] VITALS: BP 114/69
== END 2020-02-28 14:57 | disposition home health service (06) | DRG 177 ==
LOC: M.ERS 18:36 → M.ORTHSURG 21:18 → M.TBA-ER 21:18 → M.2W 21:18 → M.ICU 21:18 → M.2W 22:31 → M.ORTHSURG 02-11 15:45 → M.ICU 02-13 18:43 → M.2W 02-16 08:25 → M.3W 02-27 17:17
PROVIDERS: Emergency Medicine; Family Medicine; Internal Medicine; Internal Medicine Cardiovascular Disease; Internal Medicine Nephrology; Personal Emergency Response Attendant; ADMIT Internal Medicine
PROC: 0W9B3ZZ Drainage of Left Pleural Cavity, Percutaneous Approach (ICD-10-PCS; principal; 2020-02-20)
PROC: 0W993ZZ Drainage of Right Pleural Cavity, Percutaneous Approach (ICD-10-PCS; 2020-02-21)
DX: J69.0 Pneumonitis due to inhalation of food and vomit (principal); N17.0 Acute kidney failure with tubular necrosis; I50.43 Acute on chronic combined systolic (congestive) and diastolic (congestive) heart failure; E43 Unspecified severe protein-calorie malnutrition; I13.0 Hypertensive heart and chronic kidney disease with heart failure and stage 1 through stage 4 chronic kidney disease, or unspecified chronic kidney disease; I31.3 Pericardial effusion (noninflammatory); R18.8 Other ascites; I42.9 Cardiomyopathy, unspecified; L03.116 Cellulitis of left lower limb; L03.115 Cellulitis of right lower limb; I47.1 Supraventricular tachycardia; Z68.41 Body mass index [BMI] 40.0-44.9, adult; J15.6 Pneumonia due to other Gram-negative bacteria; N18.3 Chronic kidney disease, stage 3 (moderate); J45.909 Unspecified asthma, uncomplicated; E11.40 Type 2 diabetes mellitus with diabetic neuropathy, unspecified; E80.6 Other disorders of bilirubin metabolism; K74.60 Unspecified cirrhosis of liver; Z20.828 Contact with and (suspected) exposure to other viral communicable diseases; I25.10 Atherosclerotic heart disease of native coronary artery without angina pectoris; E66.01 Morbid (severe) obesity due to excess calories; K52.9 Noninfective gastroenteritis and colitis, unspecified; F32.9 Major depressive disorder, single episode, unspecified; Z87.11 Personal history of peptic ulcer disease; Z82.49 Family history of ischemic heart disease and other diseases of the circulatory system; Z79.4 Long term (current) use of insulin; Z91.041 Radiographic dye allergy status; Z83.3 Family history of diabetes mellitus; E11.22 Type 2 diabetes mellitus with diabetic chronic kidney disease; Z80.1 Family history of malignant neoplasm of trachea, bronchus and lung; Z79.82 Long term (current) use of aspirin; Z79.899 Other long term (current) drug therapy